=== PATIENT | female | born 1955 | race Caucasian/White ===

== ENCOUNTER 2021-07-18 15:49 | Outpatient (RCR) | payer MEDICARE, OTHER | END 2021-07-20 | disposition home or self-care (01) | PROVIDERS: ATTEND Physician Assistant Medical | DX: M12.812 Other specific arthropathies, not elsewhere classified, left shoulder (principal); Z98.890 Other specified postprocedural states ==

== ENCOUNTER 2021-08-17 10:19 | Outpatient (RCR) | payer MEDICARE, OTHER | END 2021-08-20 | disposition home or self-care (01) | PROVIDERS: ATTEND Physician Assistant Medical | DX: M12.812 Other specific arthropathies, not elsewhere classified, left shoulder (principal); Z98.890 Other specified postprocedural states ==

== ENCOUNTER → 2022-03-13 | Outpatient (CLI) | payer MEDICARE, OTHER ==
[~2022-03-13] VITALS: Ht 147.3 cm; Wt 71.8 kg
[~2022-03-13] MED LIST: LIDOCAINE 1% INJ 50 ML (XYLOCAINE) VIAL IJ ONE
--- NOTE | 2022-03-13 15:12 | Diagnostic Imaging Report ---
INDICATION: Right thyroid nodule. Patient presents for ultrasound-guided fine-needle aspiration and Rotex biopsy. Patient brought to the procedure room and placed on table in supine position. Ultrasound imaging of the neck was performed to evaluate appropriate entry site. The right neck was then prepped and draped in the usual sterile fashion. Small amount 1% lidocaine was utilized for local anesthesia. Total of 4 passes were made into the dominant solid mass right lobe of thyroid utilizing 25-gauge needles and fine-needle aspiration technique. A single pass was made with a Rotex needle and Rotex biopsy was performed. Hemostasis was obtained. Patient tolerated the procedure well and left the department in stable condition. IMPRESSION: Successful ultrasound-guided fine needle aspiration and Rotex biopsy of dominant right lobe thyroid mass. Pathology results are currently pending. Dictated by: Dictated on workstation # [id number]
== END ==
LOC: RAD 13:30
PROVIDERS: ATTEND Nurse Practitioner Family
DX: E04.1 Nontoxic single thyroid nodule (principal)
CPT/HCPCS: 10005